=== PATIENT | female | born 1990 | race African-American/Black ===

== ENCOUNTER 2020-11-11 10:17 | Outpatient (CLI) | payer OTHER ==
[2020-11-11 21:17] LABS: SARS-CoV-2 PCR by NAA Not Detected (NotDetected)
== END 2020-11-11 10:18 | disposition home or self-care (01) ==
LOC: CSHLAB 10:17
PROVIDERS: ATTEND Obstetrics & Gynecology
DX: Z20.822 Contact with and (suspected) exposure to COVID-19 (principal)
CPT/HCPCS: U0003; U0005

== ENCOUNTER 2020-11-14 15:38 | Inpatient (IN) | payer OTHER ==
[2020-11-14] MEDS ORDERED: Bupivacaine PF 0.5% 30 ML VIAL ONE (15:51)
[2020-11-14] MEDS ORDERED: Bupivacaine 0.25% HCL 30 ML VIAL ONE (15:51)
[2020-11-14 16:49] VITALS: BMI 24.8
[2020-11-14] MEDS: Lactated Ringer's 1,000 ML IV SCH (17:25)
[2020-11-14] MEDS ORDERED: Docusate 100 MG CAP PO PRN (17:54)
[2020-11-14] MEDS ORDERED: HYDROcodone/Acetaminophen 5/325 mg Tablet PO PRN ×2 (17:54)
[2020-11-14] MEDS ORDERED: CEFAZOLIN 2 GM in Premix Bag 1 BAG IVPB SCH (17:54)
[2020-11-14] MEDS ORDERED: NS w/ Oxytocin 30 units 500 ML IV SCH (17:54)
[2020-11-14] MEDS ORDERED: Acetaminophen 500 MG TAB PO PRN (17:54)
[2020-11-14] MEDS ORDERED: Lidocaine 1% (PF) 30 ML VIAL SC PRN (17:54)
[2020-11-14] MEDS ORDERED: Misoprostol 200 MCG TAB PR PRN (17:54)
[2020-11-14] MEDS ORDERED: NS w/ Oxytocin 30 units 500 ML IVPB SCH (17:54)
[2020-11-14] MEDS ORDERED: Diphenoxylate HCl/Atropine Tablet PO PRN ×2 (17:54)
[2020-11-14] MEDS ORDERED: hydrALAZINE 20 MG/ML VIAL SLOW IVP PRN (17:54)
[2020-11-14] MEDS ORDERED: Zolpidem Tartrate 5 MG TAB PO PRN (17:54)
[2020-11-14] MEDS ORDERED: Promethazine HCl 25 MG/ML VIAL IM PRN (17:54)
[2020-11-14] MEDS ORDERED: Ondansetron PF 4 MG/2 ML Vial IVP PRN (17:54)
[2020-11-14] MEDS ORDERED: Ibuprofen 800 MG TAB PO PRN (17:54)
[2020-11-14 18:36] LABS: Mean Corpuscular HGB CONC 32.5 g/dL (32.0-36.0); Mean Corpuscular Volume 82.8 fl (81.6-98.3); Mean Platelet Volume 9.6 fl (7.4-10.4); Platelet Count 268 10x3/uL (150-450); RBC Distribution Width 13.9 % (11.5-14.5); Red Blood Cell (RBC) Count 4.08 10x6/uL (3.90-5.03); White Blood Cell (WBC) Count 10.1 10x3/uL (3.5-10.5)
[2020-11-14 19:04] LABS: Hep B Surf Ag Non-Reactive S/CO (NonReactive); Syphilis Antibody Nonreactive (Nonreactive); Syphilis Antibody Index 0.05 S/CO (<1.00 Non-Reactive)
[2020-11-14 19:05] LABS: HBSAg Index 0.12 S/CO (0-0.99)
[2020-11-14] MEDS: Misoprostol 100 MCG TAB VAG SCH ×2 (20:45→22:14)
[2020-11-14] MEDS: Butorphanol Tartrate 1 MG/ML VIAL SLOW IVP PRN (23:21)
[2020-11-15] MEDS: Butorphanol Tartrate 1 MG/ML VIAL SLOW IVP PRN (00:56)
[2020-11-15] MEDS: Misoprostol 100 MCG TAB VAG SCH ×2 (00:57→11:47)
[2020-11-15] MEDS ORDERED: Fentanyl 2 mcg/Bup 0.1% Cadd 100 ML ONE (01:25)
[2020-11-15] MEDS: Lactated Ringer's 1,000 ML IV SCH (02:08)
[2020-11-15] MEDS ORDERED: Lactated Ringer's 500 ML IV PRN (02:25)
[2020-11-15] MEDS ORDERED: diphenhydrAMINE 50 MG/ML VIAL IVP PRN (02:25)
[2020-11-15] MEDS ORDERED: Acetaminophen 325 MG TAB PO PRN ×2 (02:25→04:35)
[2020-11-15] MEDS ORDERED: Hydrocerin (Eucerin) Cream 120 gm Jar TOP PRN (02:25)
[2020-11-15] MEDS ORDERED: ePHEDrine Sulfate 50 MG/10 ML VIAL SLOW IVP PRN (02:25)
[2020-11-15] MEDS ORDERED: Naloxone HCl 0.4 mg/ml Vial IVP PRN ×2 (02:25)
[2020-11-15] MEDS ORDERED: Ondansetron PF 4 MG/2 ML Vial IVP PRN ×2 (02:25→04:34)
[2020-11-15] MEDS ORDERED: Promethazine HCl 25 MG/ML VIAL IM PRN (02:25)
[2020-11-15] MEDS ORDERED: Fentanyl 2 mcg/Bupivacaine 0.1% Cassette 100 ML EPIDURAL SCH (02:30)
[2020-11-15] MEDS ORDERED: Communication Order-Pharmacy FS SCH (02:30)
[2020-11-15] MEDS ORDERED: Lidocaine 1% (PF) 30 ML VIAL ONE (03:58)
[2020-11-15] MEDS: NS w/ Oxytocin 30 units 500 ML IV SCH ×2 (04:15→05:29)
[2020-11-15] MEDS ORDERED: hydrALAZINE 20 MG/ML VIAL SLOW IVP PRN (04:34)
[2020-11-15] MEDS ORDERED: Bisacodyl 10 MG SUPP PR PRN (04:34)
[2020-11-15] MEDS ORDERED: diphenhydrAMINE 25 MG CAP PO PRN (04:34)
[2020-11-15] MEDS ORDERED: Preparation H Ointment 28 GM TUBE PR PRN (04:34)
[2020-11-15] MEDS ORDERED: Misoprostol 200 MCG TAB VAG PRN (04:34)
[2020-11-15] MEDS ORDERED: Lanolin Ointment 7 GM TUBE TOP PRN (04:34)
[2020-11-15] MEDS ORDERED: Boostrix 0.5 ML (Tdap) VIAL IM ONE (04:34)
[2020-11-15] MEDS ORDERED: Milk Of Magnesia 30 ML UDCUP PO PRN (04:34)
[2020-11-15] MEDS ORDERED: Zolpidem Tartrate 5 MG TAB PO PRN (04:34)
[2020-11-15] MEDS ORDERED: Benzocaine-Menthol 82.5 ML CAN TOP PRN (04:34)
[2020-11-15] MEDS: Ibuprofen 800 MG TAB PO SCH ×3 (06:30→21:36)
[2020-11-15] MEDS: Ferrous Sulfate 325 MG TAB PO SCH ×2 (11:46→17:29)
[2020-11-15] MEDS: Docusate Calcium (SURFAK) 240 MG CAP PO SCH ×2 (11:47→21:40)
[2020-11-15] MEDS: Prenatal Vitamin 1 TAB PO SCH (11:47)
[2020-11-15] MEDS: Acetaminophen/Codeine 30-300mg Tablet PO PRN ×2 (12:55→20:36)
[2020-11-16] MEDS: Acetaminophen/Codeine 30-300mg Tablet PO PRN ×3 (00:09→18:47)
[2020-11-16 06:29] LABS: Hemoglobin 10.1 g/dL (12.0-15.5); Mean Corpuscular HGB CONC 32.5 g/dL (32.0-36.0); Mean Corpuscular Hemoglobin 26.9 pg (27.0-33.0); Mean Corpuscular Volume 82.9 fl (81.6-98.3); Mean Platelet Volume 9.1 fl (7.4-10.4); Platelet Count 226 10x3/uL (150-450); RBC Distribution Width 14.2 % (11.5-14.5); Red Blood Cell (RBC) Count 3.75 10x6/uL (3.90-5.03); White Blood Cell (WBC) Count 9.4 10x3/uL (3.5-10.5)
[2020-11-16] MEDS: Ibuprofen 800 MG TAB PO SCH ×3 (06:36→21:55)
[2020-11-16] MEDS: Ferrous Sulfate 325 MG TAB PO SCH ×2 (07:41→16:21)
[2020-11-16] MEDS: Docusate Calcium (SURFAK) 240 MG CAP PO SCH ×2 (08:39→21:55)
[2020-11-16] MEDS: Prenatal Vitamin 1 TAB PO SCH (08:39)
[2020-11-17] MEDS: Ibuprofen 800 MG TAB PO SCH (05:44)
[2020-11-17] MEDS: Ferrous Sulfate 325 MG TAB PO SCH (07:13)
[2020-11-17 07:47] VITALS: BP 110/73; TEMP 98
[2020-11-17] MEDS: Docusate Calcium (SURFAK) 240 MG CAP PO SCH (08:29)
[2020-11-17] MEDS: Prenatal Vitamin 1 TAB PO SCH (08:30)
[2020-11-17] MEDS: Acetaminophen/Codeine 30-300mg Tablet PO PRN (09:27)
== END 2020-11-17 13:15 | disposition home or self-care (01) | DRG 807 ==
LOC: CSHLD 15:38 → CSHPP 11-15 07:48
PROVIDERS: ADMIT Obstetrics & Gynecology; ATTEND Obstetrics & Gynecology
PROC: 10E0XZZ Delivery of Products of Conception, External Approach (ICD-10-PCS; principal; 2020-11-14)
PROC: 3E033VJ Introduction of Other Hormone into Peripheral Vein, Percutaneous Approach (ICD-10-PCS; 2020-11-14)
DX: O80 Encounter for full-term uncomplicated delivery (principal); Z37.0 Single live birth; Z3A.37 37 weeks gestation of pregnancy
CPT/HCPCS: 36415; 51702; 85027; 86780; 86850; 86900; 86901; 87340; 88307; J0595; J0690; J2590; J7120; S0020

== ENCOUNTER 2023-05-01 14:11 | Inpatient (IN) | payer OTHER ==
[~2023-05-01 14:11] MED LIST: Lidocaine 2% MPF 10 ML AMP (For Epidural Use) ONE
[2023-05-01 14:49] VITALS: BMI 21.9
[2023-05-01] MEDS ORDERED: hydrALAZINE 20 MG/ML VIAL SLOW IVP PRN ×2 (15:13→15:50)
[2023-05-01 15:28] LABS: Fetal Membranes Rupture RUPTURE DETECTED (No Rupture)
[2023-05-01] MEDS ORDERED: Promethazine HCl 25 MG/ML VIAL IM PRN (15:50)
[2023-05-01] MEDS ORDERED: Lidocaine 1% (PF) 30 ML VIAL SC PRN (15:50)
[2023-05-01] MEDS ORDERED: Methylergonovine 0.2 MG/ML VIAL IM PRN (16:05)
[2023-05-01] MEDS ORDERED: Carboprost 250 MCG/ML AMP IM PRN (16:05)
[2023-05-01] MEDS ORDERED: Docusate 100 MG CAP PO PRN (16:05)
[2023-05-01] MEDS ORDERED: Diphenoxylate HCl/Atropine Tablet PO PRN (16:05)
[2023-05-01] MEDS ORDERED: Tranexamic Acid 1,000 MG/10 ML VIAL IVP PRN (16:05)
[2023-05-01] MEDS ORDERED: Ibuprofen 800 MG TAB PO PRN (16:05)
[2023-05-01] MEDS ORDERED: Misoprostol 200 MCG TAB PR PRN (16:05)
[2023-05-01] MEDS ORDERED: Oxytocin 30 units/NS 500 ML 500 ML IV SCH (16:15)
[2023-05-01] MEDS ORDERED: Misoprostol 100 MCG TAB VAG SCH (16:15)
[2023-05-01 17:08] LABS: Hematocrit 29.6 % (34.9-44.5); Hemoglobin 9.6 g/dL (12.0-15.5); Mean Corpuscular HGB CONC 32.4 g/dL (32.0-36.0); Mean Corpuscular Hemoglobin 24.7 pg (27.0-33.0); Mean Corpuscular Volume 76.3 fl (81.6-98.3); Mean Platelet Volume 8.8 fl (7.4-10.4); Platelet Count 272 10x3/uL (150-450); RBC Distribution Width 14.4 % (11.5-14.5); Red Blood Cell (RBC) Count 3.88 10x6/uL (3.90-5.03); White Blood Cell (WBC) Count 7.6 10x3/uL (3.5-10.5)
[2023-05-01] MEDS: Azithromycin 500 MG in Sodium Chloride 0.9% 250 ML 250 ML IVPB SCH (17:13)
[2023-05-01 17:41] LABS: Syphilis Antibody Nonreactive (Nonreactive); Syphilis Antibody Index 0.06 S/CO (<1.00 Non-Reactive)
[2023-05-01 17:42] LABS: HBSAg Index 0.18 S/CO (0-0.99); Hep B Surf Ag - L&D Non-Reactive S/CO (NonReactive)
[2023-05-01] MEDS: AMPicillin 1 GM in Sodium Chloride 0.9% 100 ML IVPB SCH (17:56)
[2023-05-01] MEDS: Ondansetron PF 4 MG/2 ML Vial IVP PRN (17:56)
[2023-05-01] MEDS: Betamet Acet/Betamet Na Ph 30 MG/5 ML VIAL IM SCH (19:21)
[2023-05-01] MEDS: Zolpidem Tartrate 5 MG TAB PO SCH (22:22)
[2023-05-02] MEDS: fentaNYL/Ropivacaine Epidural 100 ML ONE (01:49)
[2023-05-02] MEDS ORDERED: Lactated Ringer's 500 ML IV PRN (02:01)
[2023-05-02] MEDS ORDERED: Acetaminophen 325 MG TAB PO PRN (02:01)
[2023-05-02] MEDS ORDERED: diphenhydrAMINE 50 MG/ML VIAL IVP PRN (02:01)
[2023-05-02] MEDS ORDERED: Ondansetron PF 4 MG/2 ML Vial IVP PRN ×2 (02:01→03:37)
[2023-05-02] MEDS ORDERED: ePHEDrine Sulfate 50 MG/10 ML VIAL SLOW IVP PRN (02:01)
[2023-05-02] MEDS ORDERED: Naloxone HCl 0.4 mg/ml Vial IVP PRN ×2 (02:01)
[2023-05-02] MEDS ORDERED: Moisturizing Cream (Eucerin) 113 GM JAR TOP PRN (02:01)
[2023-05-02] MEDS ORDERED: Promethazine HCl 25 MG/ML VIAL IM PRN (02:01)
[2023-05-02] MEDS ORDERED: Communication Order-Pharmacy FS SCH (02:15)
[2023-05-02] MEDS ORDERED: fentaNYL 2 mcg/Ropivacaine 0.2% Epidural 100 ML CADD EPIDURAL SCH (02:15)
[2023-05-02] MEDS: Oxytocin 30 units/NS 500 ML 500 ML IV SCH (03:20)
[2023-05-02] MEDS ORDERED: diphenhydrAMINE 25 MG CAP PO PRN (03:37)
[2023-05-02] MEDS ORDERED: HYDROcodone/Acetaminophen 5/325 mg Tablet PO PRN (03:37)
[2023-05-02] MEDS ORDERED: Methylergonovine 0.2 MG/ML VIAL IM PRN (03:37)
[2023-05-02] MEDS ORDERED: Misoprostol 200 MCG TAB VAG PRN (03:37)
[2023-05-02] MEDS ORDERED: Bisacodyl 10 MG SUPP PR PRN (03:37)
[2023-05-02] MEDS ORDERED: Preparation H Ointment 28 GM TUBE PR PRN (03:37)
[2023-05-02] MEDS ORDERED: hydrALAZINE 20 MG/ML VIAL SLOW IVP PRN (03:37)
[2023-05-02] MEDS ORDERED: Milk Of Magnesia 30 ML UDCUP PO PRN (03:37)
[2023-05-02] MEDS ORDERED: Lanolin Ointment 7 GM TUBE TOP PRN (03:37)
[2023-05-02] MEDS ORDERED: Benzocaine-Menthol 82.5 ML CAN TOP PRN (03:37)
[2023-05-02 03:41] LABS: Analyzer IN Cardio CS NICU; RapidComm Collect By CBN
[2023-05-02 03:43] LABS: Analyzer IN Cardio CS NICU; RapidComm Collect By CBN; pH (Cord, venous) 7.375 (7.250-7.350)
[2023-05-02] MEDS ORDERED: Oxytocin 30 units/NS 500 ML 500 ML IV SCH (03:45)
[2023-05-02] MEDS: Boostrix 0.5 ML (Tdap) VIAL (>/=7 yrs of age) IM ONE (07:34)
[2023-05-02] MEDS: Ibuprofen 800 MG TAB PO SCH (07:34)
[2023-05-02] MEDS: Prenatal Vitamin 1 TAB PO SCH (09:23)
[2023-05-02] MEDS: Ferrous Sulfate 325 MG TAB PO SCH (09:23)
[2023-05-02] MEDS: Docusate 100 MG CAP PO SCH (09:23)
[2023-05-02] MEDS: HYDROcodone/Acetaminophen 5/325 mg Tablet PO PRN (17:54)
[2023-05-02] MEDS: Zolpidem Tartrate 5 MG TAB PO PRN (21:17)
[2023-05-03 15:53] VITALS: BP 114/58; TEMP 98
== END 2023-05-03 16:00 | disposition home or self-care (01) | DRG 807 ==
LOC: CSHLD/OP 14:11 → CSHLD 16:01 → CSHPP 05-02 05:35
PROVIDERS: ADMIT Obstetrics & Gynecology; ATTEND Obstetrics & Gynecology
PROC: 10E0XZZ Delivery of Products of Conception, External Approach (ICD-10-PCS; principal; 2023-05-02)
DX: O42.013 Preterm premature rupture of membranes, onset of labor within 24 hours of rupture, third trimester (principal); Z37.0 Single live birth; Z3A.34 34 weeks gestation of pregnancy
CPT/HCPCS: 51702; 76819; 82805; 84112; 85027; 86780; 86850; 86900; 86901; 87340; 88307; 99285; J0290; J0456; J0702; J2405; J2590; J3490; J7050